=== PATIENT | female | born 1945 | race Caucasian/White ===

== ENCOUNTER → 2017-03-21 | Outpatient (CLI) | payer OTHER ==
[~2017-03-21] MED LIST: APIX5TAB PO; ASPI-556 PO; ATOR20TA86 PO; DILT120C48 PO; FLEC50 PO; METO-558 PO; VALS1TAB73 PO
== END | disposition home or self-care (01) ==
LOC: RADMN 16:09
PROVIDERS: ATTEND Internal Medicine Critical Care Medicine
DX: I70.0 Atherosclerosis of aorta (principal)
CPT/HCPCS: 71020